=== PATIENT | male | born 1980 | race Caucasian/White ===

== ENCOUNTER 2016-12-08 03:08 | Emergency (ER) | payer OTHER ==
[~2016-12-08] VITALS: Ht 167.6 cm; Wt 89.8 kg
[~2016-12-08 03:08] MED LIST: FLEXERIL10 MG PO; INDOCIN25 MG PO; KEFLEX500 MG PO; MOBIC7.5 MG PO; NAPROSYN500 MG PO; NORCO 7.5/321 TABLET PO; PERCOCET 5/31 TABLET PO; ULTRAM50 MG PO; VALIUM5 MG PO
[2016-12-08 04:14] LABS: EOSINOPHIL (%) 2.2 % (0-5); EOSINOPHIL COUNT 0.2 K/uL (0-0.3); HEMATOCRIT 44.3 % (38.0-50.0); IMMATURE GRANULOCYTE (%) 0.3 % (0.0-0.7); INSTRUMENT ABS NEUTROPHIL CT 3.4 K/uL; LYMPHOCYTE COUNT 3.8 K/uL (1.0-2.8); MCH 31.1 PG (29.0-34.0); MCHC 33.9 G/DL (30.0-36.0); MCV 91.9 FL (86-99); MEAN PLAT.VOLUME 10.6 uM^3 (9.0-12.4); MONOCYTE (%) 4.7 % (3-12); MONOCYTE COUNT 0.4 K/uL (0-0.8); NEUTROPHIL (%) 43.4 % (45-76); NEUTROPHIL COUNT 3.4 K/uL (1.8-6.4); PLATELET COUNT 209 K/uL (156-360); RBC DIS.WIDTH-CV 13.4 % (11.8-14.6); RBC DIS.WIDTH-SD 45.7 % (39-53); RED BLOOD COUNT 4.82 M/uL (4.00-5.50); WHITE BLOOD COUNT 7.8 K/uL (4.1-10.2)
[2016-12-08 04:30] LABS: CHLORIDE 111 mEq/L (99-109); POTASSIUM 3.5 mEq/L (3.7-5.4); SODIUM 143 mEq/L (136-147)
[2016-12-08 04:31] LABS: GLUCOSE 105 mg/dL (70-99)
[2016-12-08 04:33] LABS: ANION GAP 15 MEQ/L (2-14)
[2016-12-08 04:34] LABS: SERUM ETHYL ALCOHOL 96 mg/dL
[2016-12-08 04:35] LABS: GFR ESTIMATE (CALCULATED) > 59 mL/min/
[2016-12-08 04:36] LABS: UREA NITROGEN (BUN) 15 mg/dL (9-23)
[2016-12-08 05:17] VITALS: BP 119/72
== END 2016-12-08 05:19 | disposition home or self-care (01) ==
LOC: EME 03:08
PROVIDERS: Emergency Medicine
DX: F43.20 Adjustment disorder, unspecified (principal); Z04.6 Encounter for general psychiatric examination, requested by authority
CPT/HCPCS: 80048; 85025; 90837; 99281; 99284; G0480

== ENCOUNTER 2017-01-22 04:13 | Emergency (ER) | payer OTHER ==
[~2017-01-22] VITALS: Ht 182.9 cm; Wt 87.9 kg
[2017-01-22 05:23] LABS: CHLORIDE 110 mEq/L (99-109); POTASSIUM 3.4 mEq/L (3.7-5.4); SODIUM 142 mEq/L (136-147)
[2017-01-22 05:24] LABS: HEMATOCRIT 44.6 % (38.0-50.0); MCH 31.3 PG (29.0-34.0); MCHC 34.5 G/DL (30.0-36.0); MCV 90.7 FL (86-99); MEAN PLAT.VOLUME 10.6 uM^3 (9.0-12.4); PLATELET COUNT 218 K/uL (156-360); RBC DIS.WIDTH-CV 13.9 % (11.8-14.6); RBC DIS.WIDTH-SD 46.8 % (39-53); RED BLOOD COUNT 4.92 M/uL (4.00-5.50); WHITE BLOOD COUNT 8.1 K/uL (4.1-10.2)
[2017-01-22 05:25] LABS: GLUCOSE 107 mg/dL (70-99)
[2017-01-22 05:26] LABS: ANION GAP 13 MEQ/L (2-14)
[2017-01-22 05:29] LABS: GFR ESTIMATE (CALCULATED) > 59 mL/min/; UREA NITROGEN (BUN) 9 mg/dL (9-23)
[2017-01-22] MEDS ORDERED: ERYTHROMYC1 APPLICAT LEFT EYE (06:58)
[2017-01-22 07:31] VITALS: BP 154/82
== END 2017-01-22 07:32 | disposition home or self-care (01) ==
LOC: EME 04:13
PROVIDERS: Emergency Medicine
PROC: 0HQ1XZZ Repair Face Skin, External Approach (ICD-10-PCS; principal; 2017-01-22)
DX: S01.81XA Laceration without foreign body of other part of head, initial encounter (principal); S05.02XA Injury of conjunctiva and corneal abrasion without foreign body, left eye, initial encounter; F17.200 Nicotine dependence, unspecified, uncomplicated; X99.1XXA Assault by knife, initial encounter
CPT/HCPCS: 70481; 80048; 85027; 99281; 99284; J2270; J2405